=== PATIENT | male | born 1990 | race Caucasian/White ===

== ENCOUNTER 2021-05-04 01:21 | Emergency (ER) | payer MEDICAID ==
[~2021-05-04 01:21] MED LIST: AUGMENTIN 875-875 MG PO; FLEXERIL5 MG PO; HYDROCODONE BIT1 T11 PO; MOTRIN800 MG PO
== END 2021-05-04 02:07 | disposition home or self-care (01) ==
LOC: ED 01:21
DX: S51.812A Laceration without foreign body of left forearm, initial encounter (principal); X58.XXXA Exposure to other specified factors, initial encounter; Y93.89 Activity, other specified; Y92.89 Other specified places as the place of occurrence of the external cause; Y99.8 Other external cause status

== ENCOUNTER 2024-03-15 12:48 | Emergency (ER) | payer SELFPAY ==
[~2024-03-15] VITALS: Wt 83.9 kg
[2024-03-15] MEDS ORDERED: VISTARIL25 MG PO (13:14)
[2024-03-15] MEDS ORDERED: hydrOXYzine pamoate 25 MG CAP PO ONE (13:15)
[2024-03-16] MEDS ORDERED: HYDROXYZINE HCL25 MG PO (18:38)
== END 2024-03-15 13:20 | disposition home or self-care (01) ==
LOC: ED 12:48
DX: F41.9 Anxiety disorder, unspecified (principal); F32.A Depression, unspecified